=== PATIENT | male | born 1955 | race Caucasian/White ===

== ENCOUNTER 2023-05-21 06:24 | Day surgery (SDC) | payer MEDICARE, BC ==
[2023-05-21] MEDS ORDERED: Propofol 200 MG/20 ML SDV IV ONE (06:25)
[2023-05-21] MEDS ORDERED: Midazolam 1 MG/ML 2 ML SDV IV ONE (06:25)
[2023-05-21] MEDS ORDERED: fentaNYL 100 MCG/2 ML SDV IV ONE (06:25)
[2023-05-21] MEDS ORDERED: Sodium Chloride 0.9% 10 ML Syringe FLUSH PRN (06:45)
[2023-05-21] MEDS: Lactated Ringers 1,000 ML IV SCH (07:55)
[2023-05-21 12:51] VITALS: BP 116/79; PULSE 64
== END 2023-05-21 10:27 | disposition home or self-care (01) ==
LOC: FB.SDS 06:24
PROVIDERS: ATTEND Surgery
DX: Z12.11 Encounter for screening for malignant neoplasm of colon (principal); D12.3 Benign neoplasm of transverse colon; K64.4 Residual hemorrhoidal skin tags; N40.1 Benign prostatic hyperplasia with lower urinary tract symptoms; G89.29 Other chronic pain; R73.9 Hyperglycemia, unspecified; E78.00 Pure hypercholesterolemia, unspecified; E55.9 Vitamin D deficiency, unspecified
CPT/HCPCS: 00811; 88305; J2250; J2704; J3010; J7120